=== PATIENT | female | born 1960 | race Caucasian/White ===

== ENCOUNTER → 2016-05-10 | Outpatient (CLI) | payer BC, OTHER ==
[~2016-05-10] MED LIST: ALBUAER2 INH; ATOR-26 PO; EFF75 PO; EFFSR75 PO; HYDR25CA PO; LATA0.5S OP; LISI-729 PO; MELATAB2 PO; MIRT30TA2 PO; OXYC-57 PO; OXYC-643 PO; RANI300T2 PO; RIZA10TA18 PO; SIMV40TA2 PO; VENL150C56 PO
--- NOTE | 2016-05-10 15:58 | MAMMOGRAPHY REPORT ---
BILATERAL DIGITAL SCREENING MAMMOGRAM TOMOSYNTHESIS WITH CAD: 05/10/2016 CLINICAL HISTORY: Routine screening. Patient has no complaints. TECHNIQUE: Breast tomosynthesis in addition to standard 2D mammography was performed. Current study was also evaluated with a Computer Aided Detection (CAD) system. COMPARISON: Comparison is made to exams dated: 05/05/2013 mammogram, 04/18/2012 mammogram, 05/13/2013 ma mmogram, 05/06/2012 mammogram, 11/22/2010 mammogram, and 11/18/2009 mammogram - [facility]. BREAST COMPOSITION: The tissue of both breasts is heterogeneously dense, which may obscure small ma sses. FINDINGS: There is focal architectural distortion and associated clustered microcalcification in th e upper outer middle one third of the right breast, for which additional spot compression tomosynthe sis HD views, spot magnification views and possibly ultrasound are recommended. There are possible grouped microcalcifications in the medial, middle one third of the left breast, best seen on the CC view, for which additional spot magnification views are also recommended in the left breast. No other suspicious mass, architectural distortion or cluster of microcalcifications is seen bilater ally. IMPRESSION: ACR BI-RADS CATEGORY 0: INCOMPLETE EVALUATION: NEED ADDITIONAL IMAGING EVALUATION The focal architectural distortion and associated clustered microcalcification in the right upper ou ter quadrant, and left breast possible grouped microcalcifications need additional imaging evaluatio n. The patient will be called to schedule an appointment. Approximately 10% of breast cancers are not detected with mammography. A negative mammographic repor t should not delay biopsy if a clinically suggestive mass is present. Pema Zaman M.D. ay/:05/10/2016 15:16:13 Facility Supervisor: Juany MCMILLAN,R, M, [facility] letter sent: Addl Imaging 0 BI-RADS Code: ACR BI-RADS Category 0: Incomplete Evaluation: Need Additional Imaging Evaluation
== END | disposition home or self-care (01) ==
LOC: C.MAMM 14:25
PROVIDERS: ATTEND Family Medicine
DX: Z12.31 Encounter for screening mammogram for malignant neoplasm of breast (principal); N64.9 Disorder of breast, unspecified; R92.0 Mammographic microcalcification found on diagnostic imaging of breast

== ENCOUNTER → 2016-05-15 | Outpatient (CLI) | payer BC, OTHER ==
[~2016-05-15] MED LIST changes: -EFFSR75 PO; -SIMV40TA2 PO
[2016-05-15 18:13] LABS: URINE APPEARANCE TURBID (CLEAR); URINE BILIRUBIN NEG (NEG); URINE COLOR YELLOW; URINE EPITHELIAL CELL AUTO >30 /lpf (0-5); URINE NITRITE NEG (NEG); URINE SPECIFIC GRAVITY 1.025 (1.000-1.030); UROBILINOGEN NEG (NEG)
[2016-05-15 18:15] LABS: MANUAL MICROSCOPIC REQUIRED? NO; REVIEW REQ? YES
== END | disposition home or self-care (01) ==
LOC: C.LABSPEC 17:38
PROVIDERS: ATTEND Obstetrics & Gynecology
DX: N81.11 Cystocele, midline (principal)

== ENCOUNTER → 2016-05-19 | Outpatient (CLI) | payer BC, OTHER ==
--- NOTE | 2016-05-19 13:30 | MAMMOGRAPHY REPORT ---
BILATERAL DIGITAL DIAGNOSTIC MAMMOGRAM TOMOSYNTHESIS AND TARGETED RIGHT ULTRASOUND: 05/19/2016 CLINICAL HISTORY: Callback from screening mammogram for right breast architectural distortion and ca lcifications and left breast calcifications. TECHNIQUE: Breast tomosynthesis in addition to standard 2D mammography was performed. Spot peter robin right CC and MLO tomosynthesis images and spot magnification bilateral cc and ML views were obt ained. COMPARISON: Comparison is made to exams dated: 05/10/2016 mammogram, 05/13/2013 ultrasound, 05/13/2013 ma mmogram, 05/05/2013 mammogram, 05/06/2012 mammogram, and 11/22/2010 mammogram - [facility]. BREAST COMPOSITION: The tissue of both breasts is heterogeneously dense, which may obscure small ma sses. FINDINGS: Spot compression views demonstrate persistent architectural distortion within the right upper outer quadrant. Pleomorphic calcifications are seen in association with the mass, with the extent of calc ifications measuring approximately 19 mm. Spot magnification views of the left breast demonstrate a small 5 mm cluster of amorphic calcificati ons in the left upper inner quadrant, best seen on the cc view. The calcifications are indeterminat e and stereotactic biopsy is recommended for further evaluation. A few other scattered punctate eliezer ign-appearing calcifications are seen within the left medial breast. Targeted ultrasound was performed of the area of the architectural distortion and calcifications. I n the right breast at 9:00 (note that the images are mislabeled as 3:00) periareolar region, there i s an ill-defined hypoechoic irregular mass which measures 8 x 11 x 9 mm. This likely correlates wit h the mammographic findings and is suspicious for malignancy. Recommend ultrasound guided core need le biopsy versus stereotactic biopsy for further evaluation. IMPRESSION: ACR BI-RADS CATEGORY 4C: MODERATE SUSPICION FOR MALIGNANCY, TARGETED ULTRASOUND ACR BI- RADS CATEGORY 4C: MODERATE SUSPICION FOR MALIGNANCY 1. Architectural distortion and associated pleomorphic calcifications in the right upper outer quad rant mammographically, with a corresponding hypoechoic 11 mm mass seen on ultrasound in the right 9: 00 breast. Findings are suspicious for malignancy and stereotactic biopsy versus ultrasound-guided core needle biopsy is recommended for further evaluation. 2. Small cluster of calcifications in the left upper inner quadrant is indeterminate. Recommend st ereotactic biopsy for further evaluation. A phone call was made to the physician's office to confirm faxed results were received. The patient has been verbally notified of the results. She tentatively scheduled the biopsies before leaving t he department. Approximately 10% of breast cancers are not detected with mammography. A negative mammographic repor t should not delay biopsy if a clinically suggestive mass is present. Sarah Fang M.D. ah/:05/19/2016 12:13:35 Business Developer: Alisson NORWOOD)(Hero), [facility] letter sent: Abnormal 4/5 BI-RADS Code: ACR BI-RADS Category 4C: Moderate Suspicion For Malignancy Ultrasound BI-RADS: ACR BI -RADS Category 4C: Moderate Suspicion For Malignancy
== END | disposition home or self-care (01) ==
LOC: C.MAMM 10:00
PROVIDERS: ATTEND Family Medicine
DX: R92.1 Mammographic calcification found on diagnostic imaging of breast (principal); N63 Unspecified lump in breast; N64.89 Other specified disorders of breast

== ENCOUNTER → 2016-05-31 | Outpatient (CLI) | payer BC, OTHER ==
--- NOTE | 2016-05-31 09:24 | Discharge Instructions ---
Discharge Instructions Procedure Procedure Date: May 31, 2016. Reason for visit: Bilateral Calcs/Lt Stereo/Rt Poss St Vs Core. Discharge Discharge Date: May 31, 2016. Discharge Diagnosis: status post breast biopsies Instructions Activity Recommendations: Additional Limitations (see below) Return to School/Work: no limitations Recommended Home Diet: No Limitations Provider Instructions: ACTIVITY RECOMMENDATIONS: * No lifting, pushing, pulling or exercising the affected side for three days. RETURN TO SCHOOL/WORK: * You may return to work/school after the procedure, but do not perform any strenuous activities for 24 to 48 hours. MEDICATIONS: * Tylenol (two 325 mg) every four to six hours if needed for mild pain (if not allergic to Tylenol). DIET: * Resume previous diet. SPECIAL CARE INSTRUCTIONS: * Keep biopsy site dry for 24 hours. May shower after 24 hours, but do not soak (bathe) incision. * May remove Tegaderm (plastic patch) tomorrow AFTER showering. * Leave the steri-strips on for one week. Allow the steri-strips to fall off by themselves. If not off after one week, you may remove them. You may place a Bandaid crosswise over the strips, if desired. * Apply ice 10 minutes on and 10 minutes off as needed. * Wear a bra at bedtime to sleep more comfortably for 2-3 days. * Your referring physician should have the results after approximately 5 to 7 business days. * Call for unusual bleeding, fever, drainage, etc or if you have any questions call during normal business hours or after hours call Dr Fang, [phone]. FOLLOW UP VISIT: Follow-up with Referring Physician as scheduled. Allergies Coded Allergies: Penicillins (Verified Allergy, Unknown, HIVES RASH FACIAL SWELLING, 05/11/16 ) Maria Isabel Chung Recommendations: Call your doctor if: * Temperature above 101 degrees * Pain not relieved by pain medicine ordered * There is increased drainage or redness from any incision * You have any unanswered questions or concerns. Your Doctors Instructions noted above were prepared by provider Sarah Fang. Patient Signature Section: Patient Instructions Signature Page Pattie Madison Patient (or Guardian) Signature/Date: I have read and understand the instructions given to me by my caregivers. Caregiver/RN/Doctor Signature/Date: The above-named patient and/or guardian has received patient instructions on this date. + Original Patient Signature Page (only) stays with chart. Please make copy for patient.
--- NOTE | 2016-05-31 12:31 | MAMMOGRAPHY REPORT ---
STEREOTACTIC GUIDED BIOPSY LEFT BREAST: 05/31/2016 CLINICAL HISTORY: Indeterminate calcifications in the left upper inner quadrant. PATIENT CONSENT: The procedure, risks, benefits, and alternatives of stereotactic biopsy with clip maribel jones were discussed with the patient, and verbal and written consent was obtained. A timeout wa s performed immediately prior to the procedure. PROCEDURE DESCRIPTION: With stereotactic guidance, aseptic technique, and lidocaine as a local anest hetic (1% lidocaine to anesthetize the skin and 1% lidocaine with epinephrine to anesthetize the elly per tissues), the area of concern in the left upper inner quadrant was sampled multiple times with a 9-gauge vacuum-assisted biopsy needle ([employer]). The path of approach was craniocaudal the spe cimen radiograph demonstrates calcifications to be present in the samples. The samples containing c alcifications (labeled "A") were from the samples without calcifications (labeled "B"). A metallic marker clip was placed at the biopsy site. This was confirmed on postprocedure mammograms . Direct pressure was applied at the biopsy site and hemostasis was readily achieved. The patient tolerated the procedure without complication. She was given wound care instructions. COMPARISON: Comparison is made to exams dated: 05/19/2016 ultrasound, 05/19/2016 mammogram, 05/10/2016 mammogram, and 05/05/2013 mammogram - [facility]. IMPRESSION: STEREOTACTIC GUIDED BIOPSY Stereotactic biopsy of indeterminate calcifications in the left upper inner quadrant, with clip lon landers. The patient will receive pathology results from her referring provider. Sarah Fang M.D. ah/:05/31/2016 09:51:38 Dividend Deposit Voucher Clerk: Kavita NORWOOD)(M), [facility]
--- NOTE | 2016-05-31 12:31 | MAMMOGRAPHY REPORT ---
THIS REPORT HAS BEEN AMENDED. STEREOTACTIC GUIDED BIOPSY RIGHT BREAST: 05/31/2016 CLINICAL HISTORY: Indeterminate calcifications with associated architectural distortion in the right upper outer quadrant. PATIENT CONSENT: The procedure, risks, benefits, and alternatives of stereotactic biopsy with clip p lacement were discussed with the patient, and verbal and written consent was obtained. A timeout wa s performed immediately prior to the procedure. PROCEDURE DESCRIPTION: With stereotactic guidance, aseptic technique, and lidocaine as a local anest hetic (1% lidocaine to anesthetize the skin and 1% lidocaine with epinephrine to anesthetize the elly per tissues), the area of concern in the right upper outer quadrant was sampled multiple times with a 9-gauge vacuum-assisted biopsy needle ([employer]). The path of approach was craniocaudal. The specimen radiograph demonstrates calcifications to be present in the samples. A metallic marker cli p was placed at the biopsy site. This was confirmed on postprocedure mammograms. Direct pressure w as applied at the biopsy site and hemostasis was readily achieved. The patient tolerated the proced ure without complication. She was given wound care instructions. COMPARISON: Comparison is made to exams dated: 05/31/2016 stereotactic biopsy, 05/19/2016 mammogram, 05/10/2016 mammogram, and 05/13/2013 mammogram - [facility]. IMPRESSION: STEREOTACTIC GUIDED BIOPSY Stereotactic biopsy of indeterminate calcifications in the right upper outer quadrant, with clip riya cement. The patient will receive pathology results from her referring provider. Sarah Fang M.D. ah/:05/31/2016 09:52:44 Clinical Orthoptist: Kavita Liu RT(R)(M), [facility] AMENDMENT: 06/14/2016 Sarah Fang M.D. The pathology from bilateral stereotactic biopsies were reviewed on 06/14/2016. The pathology of the right breast stereotactic biopsy yielded usual ductal hyperplasia, fibrocystic changes, and microcal cifications associated with benign ductal elements. The left breast stereotactic biopsy yielded eliezer ign breast tissue, fibrocystic changes, and micro-calcifications associated with benign ductal eleme nts. Given the presence of multiple calcifications within both specimens, both areas were felt to h ave been adequately sampled. Recommend bilateral diagnostic mammograms in 6 months to confirm stabi lity.
--- NOTE | 2016-05-31 12:33 | MAMMOGRAPHY REPORT ---
BILATERAL DIGITAL DIAGNOSTIC MAMMOGRAM: 05/31/2016 CLINICAL HISTORY: Status post bilateral stereotactic biopsy. TECHNIQUE: Postprocedural bilateral CC and ML views were obtained. COMPARISON: Comparison is made to exams dated: 05/19/2016 ultrasound, 05/19/2016 mammogram, 05/10/2016 mammogram, 05/13/2013 mammogram, 05/06/2012 mammogram, and 05/05/2013 mammogram - [facility]. BREAST COMPOSITION: The tissue of both breasts is heterogeneously dense, which may obscure small ma sses. FINDINGS: A new biopsy marker clip is seen within the right breast status post stereotactic biopsy of right upper outer quadrant calcifications and associated architectural distortion. There is infe rior migration of the biopsy marker clip of approximately 2.2 cm, likely due to accordion effect. A new biopsy marker clip is seen within the left upper inner quadrant at the site of the biopsied antonio cifications. No significant postbiopsy hematoma is seen. IMPRESSION: POST PROCEDURE IMAGING FOR MARKER PLACEMENT New biopsy marker clips status post bilateral stereotactic biopsy. There is inferior migration of t he right biopsy marker clip as described above. Pathology results are pending. Approximately 10% of breast cancers are not detected with mammography. A negative mammographic repor t should not delay biopsy if a clinically suggestive mass is present. Sarah Fang M.D. /:05/31/2016 10:32:30 Physician Allergist Immunologist: Kavita MCMILLAN(Micheal)(M), [facility] BI-RADS Code: Post Procedure Imaging For Marker Placement
== END | disposition home or self-care (01) ==
LOC: C.MAMM 08:22
PROVIDERS: ATTEND Family Medicine
DX: R92.0 Mammographic microcalcification found on diagnostic imaging of breast (principal); R92.1 Mammographic calcification found on diagnostic imaging of breast

== ENCOUNTER 2016-06-06 11:07 | Day surgery (SDC) | payer BC, OTHER ==
[2016-05-11 13:41] VITALS: BMI 31.0
[2016-05-11 13:54] VITALS: BMI 31.0
--- NOTE | 2016-05-11 14:11 | PAT Medication Instructions ---
Service Date May 11, 2016. Current Home Medication List Albuterol (Ventolin), 2 PUFFS INH QID Atorvastatin (Lipitor), 80 MG PO HS Hydroxyzine Pamoate (Vistaril), 1 CAP PO Q6H Latanoprost (Xalatan 0.005% Oph Alexa), 1 DROPS OP HS Lisinopril (Zestril), 5 MG PO QAM Melatonin (Melatonin Maximum Strengt), 1 TAB PO HS Mirtazapine Soltab (Remeron Soltab), 30 MG PO HS Oxycodone/Acetaminophen 5MG/325MG (Oxycodone/Acetaminophen 5MG/325MG), 1 TABLET PO Q6H Ranitidine (Zantac), 300 MG PO HS Rizatriptan Benzoate (Maxalt), 10 MG PO PRN Venlafaxine Hcl (Effexor Extended Rel), 150 MG PO Q2D Venlafaxine Hcl (Effexor), 75 MG PO Q2D Medication Instructions For Your Scheduled Surgery - Hold the following medications the morning of surgery: Lisinopril (Zestril), 5 MG PO QAM - Take the following medications the morning of surgery with a sip of water: Venlafaxine Hcl (Effexor Extended Rel), 150 MG PO Q2D Venlafaxine Hcl (Effexor), 75 MG PO Q2D Rizatriptan Benzoate (Maxalt), 10 MG PO PRN Hydroxyzine Pamoate (Vistaril), 1 CAP PO Q6H Albuterol (Ventolin), 2 PUFFS INH QID (bring with you to hospital morning of surgery) Oxycodone/Acetaminophen 5MG/325MG (Oxycodone/Acetaminophen 5MG/325MG), 1 TABLET PO Q6H (okay to take up to 4 hours prior to surgery if needed) - Hold the following medications as scheduled the night before surgery: Mirtazapine Soltab (Remeron Soltab), 30 MG PO HS - Take the following medications as scheduled the night before surgery: Rizatriptan Benzoate (Maxalt), 10 MG PO PRN Ranitidine (Zantac), 300 MG PO HS Melatonin (Melatonin Maximum Strengt), 1 TAB PO HS Latanoprost (Xalatan 0.005% Oph Alexa), 1 DROPS OP HS Hydroxyzine Pamoate (Vistaril), 1 CAP PO Q6H Albuterol (Ventolin), 2 PUFFS INH QID Atorvastatin (Lipitor), 80 MG PO HS Oxycodone/Acetaminophen 5MG/325MG (Oxycodone/Acetaminophen 5MG/325MG), 1 TABLET PO Q6H If you have any questions please call us at [phone] (Shelby Feng PA-C) or [phone] or [phone]
--- NOTE | 2016-05-11 14:36 | DIAGNOSTIC IMAGING REPORT ---
CHEST PREADMISSION(PA/LAT) CLINICAL HISTORY: PAT preoperative evaluation COMPARISON STUDY: No previous studies for comparison. FINDINGS: The bones soft tissues and hemidiaphragms are normal. The cardiomediastinal silhouette is normal. The lungs are clear. The pulmonary vasculature is normal. IMPRESSION: Negative chest. Electronically signed by: Kiran Haque M.D. 05/11/2016 2:35 PM Dictated Date/Time: 05/11/2016 2:35 PM
[2016-05-11 14:45] LABS: BASO % 0.4 %; BASO ABS # 0.04 K/uL (0-0.2); COMPLETE YES; EOS % 2.3 %; HEMATOCRIT 37.8 % (37-47); IG% 0.1 %; LYMPH ABS # 3.63 K/uL (1.2-3.4); MEAN CORPUSCULAR HEMOGLOBIN 30.5 pg (25-34); MEAN CORPUSCULAR HGB CONC 33.9 g/dl (32-36); MEAN PLATELET VOLUME 9.6 fL (7.4-10.4); MONO % 6.9 %; NEUT % 50.3 %; PLATELET COUNT 256 K/uL (130-400); WHITE BLOOD COUNT 9.07 K/uL (4.8-10.8)
[2016-05-11 14:56] LABS: INR 0.9 (0.9-1.1)
[2016-05-11 15:02] LABS: URINE APPEARANCE CLEAR (CLEAR); URINE BILIRUBIN NEG (NEG); URINE COLOR YELLOW; URINE EPITHELIAL CELL AUTO >30 /lpf (0-5); URINE NITRITE NEG (NEG); URINE SPECIFIC GRAVITY 1.022 (1.000-1.030); UROBILINOGEN NEG (NEG)
[2016-05-11 15:03] LABS: MANUAL MICROSCOPIC REQUIRED? NO; REVIEW REQ? NO
[2016-05-11 15:07] LABS: BUN/CREATININE RATIO 15.2 (10-20); CALCIUM 9.1 mg/dl (8.5-10.1); CREATININE 1.1 mg/dl (0.60-1.20); POTASSIUM 3.5 mmol/L (3.5-5.1)
[~2016-06-06] VITALS: Ht 162.6 cm; Wt 82.6 kg
[~2016-06-06 11:07] MED LIST changes: +CLINDAMYCIN 600 MG/54 ML D5W 54 ML IV SCH; +LACTATED RINGER'S 1000ML 1,000 ML IV SCH; -OXYC-57 PO
[2016-06-06 11:32] VITALS: BMI 31.0
[2016-06-06 11:41] VITALS: BP 99/67; PULSE 93; TEMP 36.9; O2SAT 94; Ht 162.6 cm; Wt 82.6 kg
[2016-06-06] MEDS ORDERED: FENTANYL CITRATE INJ 50 MCG/1 ML 2 ML VIAL ONE ×2 (12:01→13:07)
[2016-06-06] MEDS ORDERED: MIDAZOLAM HCL 1 MG/ML 2ML VIAL ONE (12:01)
--- NOTE | 2016-06-06 12:17 | History and Physical ---
History & Physical Date Jun 06, 2016. Chief Complaint LBP and bilateral leg pain History of Present Illness The patient is a 56 year old female with complaints of above who has been symptomatic for months. Her history is significant for a prior R L5-S1 microdiscectomy following which she did well. She is limited in her ability to work due to the pain. Pain radiates to hip hips and is worse with standing. MRI shows L4-5 stenosis and multilevel degenerative changes. no incontinence or myelopathic symptoms. She failed outpatient management and was utilizing pain meds. Past Medical/Surgical History high cholesterol anxiety obesity smoker lumbar surgery asthma Additional History Hepatic Disease: No Endocrine Disorder: No Kidney Disease: No Hypertension: No Heart Disease: No Bleeding Tendencies: No Infectious Diseases: No Allergies Coded Allergies: Penicillins (Verified Allergy, Unknown, HIVES RASH FACIAL SWELLING, ) Home Medications Scheduled Albuterol (Ventolin), 2 PUFFS INH QID Atorvastatin (Lipitor), 80 MG PO HS Hydroxyzine Pamoate (Vistaril), 1 CAP PO Q6H Latanoprost (Xalatan 0.005% Oph Alexa), 1 DROPS OP HS Lisinopril (Zestril), 5 MG PO QAM Melatonin (Melatonin Maximum Strengt), 1 TAB PO HS Mirtazapine Soltab (Remeron Soltab), 30 MG PO HS Oxycodone/Acetaminophen 5MG/325MG (Oxycodone/Acetaminophen 5MG/325MG), 1 TABLET PO Q6H Ranitidine (Zantac), 300 MG PO HS Rizatriptan Benzoate (Maxalt), 10 MG PO PRN Venlafaxine Hcl (Effexor Extended Rel), 150 MG PO Q2D Venlafaxine Hcl (Effexor), 75 MG PO Q2D Physical Examination Skin: warm/dry Eyes: normal inspection, sclerae normal ENT: normal ENT inspection Head: normocephalic, atraumatic Neck: supple, trachea midline Respiratory/Chest: lungs clear, no respiratory distress Cardiovascular: regular rate, rhythm Back: normal inspection (midline scar) Extremities: normal inspection, normal range of motion Neurologic/Psych: no motor/sensory deficits, alert, normal reflexes, oriented x 3 Diagnosis L4-5 stenosis Plan of Treatment L4-5 decompression
[2016-06-06] MEDS ORDERED: BUPIVACAINE/EPINEPHRINE 0.5% MPF 1:200,000 30 ML VIAL ONE (12:33)
[2016-06-06] MEDS ORDERED: THROMBIN FOR SOLN 20000 UNIT KIT ONE (12:33)
[2016-06-06] MEDS ORDERED: THROMBIN 5000 UNITS KIT ONE (12:33)
[2016-06-06] MEDS ORDERED: BACITRACIN 50000 UNIT VIAL ONE (12:34)
[2016-06-06] MEDS ORDERED: HEPARIN SOD (PORCINE) 1000 UNIT/ML 10 ML VIAL ONE (12:34)
[2016-06-06] MEDS ORDERED: ATROPINE SULFATE 0.1 MG/ML 5ML SYR IV PRN (13:00)
[2016-06-06] MEDS ORDERED: FENTANYL CITRATE INJ 50 MCG/1 ML 2 ML VIAL IV PRN (13:00)
[2016-06-06] MEDS ORDERED: ONDANSETRON INJ 2 MG/ML 2 ML VIAL IV PRN ×2 (13:00→13:45)
[2016-06-06] MEDS ORDERED: EpHEDrine SULFATE INJ 50 MG/ML AMP IV PRN (13:00)
[2016-06-06] MEDS ORDERED: HYDROmorphone INJ 2 MG/ML SYR/VIAL ONE ×2 (13:07→13:38)
[2016-06-06] MEDS ORDERED: FLOSEAL HEMOSTATIC MATRIX 5ML TOP ONE (13:31)
[2016-06-06] MEDS ORDERED: DEXAMETHASONE SOD INJ 4 MG/ML VIAL ONE (13:38)
[2016-06-06] MEDS ORDERED: ROCURONIUM BROMIDE 10 MG/ML 5 ML VIAL ONE (13:38)
[2016-06-06] MEDS ORDERED: LIDOCAINE HCL 2% 2 ML VIAL (20MG/ML) ONE (13:38)
[2016-06-06] MEDS ORDERED: ONDANSETRON INJ 2 MG/ML 2 ML VIAL ONE ×2 (13:38→14:06)
[2016-06-06] MEDS ORDERED: PROPOFOL IV EMULSION 10 MG/ML 20 ML VIAL IV ONE (13:38)
--- NOTE | 2016-06-06 13:42 | [facility] Post Operative Brief Note ---
Immediate Operative Summary Operative Date Jun 06, 2016. Pre-Operative Diagnosis L4-5 Stenosis Post-Operative Diagnosis Same as pre-operative diagnosis Procedure(s) Performed L4-L5 Decompression Surgeon Dr. Mark Strong Management Manager Surgeon(s) Renato Gutierres PA-C Estimated Blood Loss 5ml Findings dict Specimens None per surgeon
[2016-06-06] MEDS ORDERED: OXYC-57 PO (13:44)
[2016-06-06] MEDS ORDERED: OXYCODONE/ACETAMINOPHEN 5-325 TAB PO PRN ×2 (13:45)
[2016-06-06] MEDS ORDERED: MoRPHine SULFATE 2 MG/ML CARP IV PRN (13:45)
--- NOTE | 2016-06-06 13:45 | Discharge Instructions ---
Discharge Instructions Date of Service Jun 06, 2016. Admission Reason for Admission: Herniated Nucleus Pulposus Discharge Discharge Diagnosis / Problem: same Discharge Goals Goal(s): Decrease discomfort Activity Recommendations Activity Limitations: per Instructions/Follow-up section Shower/Bathe: may shower/bathe in 3 days . Instructions / Follow-Up Instructions / Follow-Up ACTIVITY RECOMMENDATIONS: SELF CARE INSTRUCTIONS AFTER A LAMINECTOMY 1. No prolonged sitting (less than 30 minutes for the first 3 weeks after surgery). 2. No bending, lifting more than 5 pounds, or twisting (roll like a log when turning in bed). 3. You may shower 3 days after surgery if no drainage from wound. Thoroughly dry wound. Do not soak in the tub. 4. Please walk as much as you can for exercise. Gradually increase the distance that you walk as your endurance increases. 5. You may drive in 7-10 days if you are comfortable and no longer requiring pain medications. SPECIAL CARE INSTRUCTIONS: VERY IMPORTANT TO READ AND REVIEW A. Your surgical incision has been closed with a cosmetic suture under the skin that will dissolve in about 6 weeks. In 14 days, you can use a pair of clean scissors and cut the suture that is left outside of the skin at the ends of your incision. B. Complications are uncommon, but please contact us if you have any signs or symptoms of: 1. wound infection (fever higher than 102.5 degrees F, redness, separation of wound, drainage, or increasing pain from the incision) 2. blood clots in legs (pain, swelling, redness and warmth in legs) 3. urinary tract infection (fever higher than 102.5 degrees, burning upon urination or increased frequency of urination) 4. nerve problems (inability to walk on your toes or heels, numbness, loss of bowel or bladder control) 5. any other symptoms that concern you. C. Please call the office at if you have any concerns or questions about your operation or recovery. MANAGING PAIN AFTER SPINAL SURGERY 1. Narcotic medication is intended for short-term use and will be provided for surgical pain. Surgical pain usually lasts for a period of 4-6 weeks. Narcotic medication includes Percocet, Vicodin, Darvocet, Tylenol #3 or Lortab. 2. Longer-term pain is more appropriately treated with non-narcotic medication such as Tylenol ES. 3. Muscle spasm is not appropriately treated with narcotics. Muscle relaxers such as Soma, Flexeril or Skelaxin can be used along with Tylenol ES. 4. Remember that we all live with some "aches and pains". This is not unusual or uncommon after an injury or as we get older. 5. We will provide appropriate medication within the normal guidelines of their prescribed use. We will also be very cautious and aware of potential abuse and extended duration of patients' medication needs. 6. Please allow 2-3 days to process refills. Prescriptions will not be mailed but must be picked up at the office. FOLLOW UP VISIT: Keep your scheduled follow-up appointment. Any questions, please call the office at . Current Hospital Diet Patient's current hospital diet: Discharge Diet Recommended Diet: Regular Diet Procedures Procedures Performed: L4-L5 Decompression Pending Studies Studies pending at discharge: no Medical Emergencies . Who to Call and When: Medical Emergencies: If at any time you feel your situation is an emergency, please call 911 immediately. . Non-Emergent Contact Non-Emergency issues call your: Surgeon . "Provider Documentation" section prepared by Mark Strong. VTE Core Measure Inpt VTE Proph given/why not?: SCD's [place] Drug Monitoring Program Search Results: patient reviewed within database, no issues identified
[2016-06-06] MEDS ORDERED: ESMOLOL HCL 10 MG/ML 10 ML VIAL ONE (14:06)
[2016-06-06] MEDS ORDERED: PHENYLEPHRINE 100MCG/ML 5ML SYR ONE (14:06)
[2016-06-06] MEDS ORDERED: KETOROLAC TROMETHAMINE 30 MG/ML VIAL ONE (14:06)
[2016-06-06] MEDS ORDERED: GLYCOPYRROLATE INJ 0.2 MG/ML VIAL ONE (14:06)
[2016-06-06] MEDS ORDERED: NEOSTIGMINE METHYLSULFATE 1 MG/ML 10ML VIAL ONE (14:06)
--- NOTE | 2016-06-06 14:13 | DIAGNOSTIC IMAGING REPORT ---
INTRAOPERATIVE LUMBAR SPINE SINGLE VIEW CLINICAL HISTORY: Intraoperative localization. L4-5 discectomy. COMPARISON STUDY: No previous studies for comparison. FINDINGS: 3 seconds of fluoroscopic time was utilized. A single intraoperative fluoroscopic spot image was acquired. This reveals a metallic probe at the level the posterior elements at the L4-5 level. IMPRESSION: Metallic probe at the L4-5 level. Electronically signed by: Hernesto Brooks M.D. 06/06/2016 2:12 PM Dictated Date/Time: 06/06/2016 2:11 PM
--- NOTE | 2016-06-06 14:30 | Anesthesiology Progress Note ---
Anesthesia Post Op Note Date & Time Jun 06, 2016 at 14:30 Vital Signs Pain Intensity: 2 Vital Signs Past 12 Hours Date Time Temp Pulse Resp B/P Pulse Ox O2 Delivery O2 Flow Rate FiO2 06/06/16 14:20 94 17 106/68 100 Room Air 06/06/16 14:10 97 14 97/68 100 Mask 10 06/06/16 14:00 96 17 106/57 100 Mask 10 06/06/16 13:54 36.0 99 17 106/61 100 Mask 10 06/06/16 11:41 36.9 93 18 99/67 94 Room Air Notes Mental Status: alert / awake / arousable, participated in evaluation Pt Amnestic to Procedure: Yes Nausea / Vomiting: adequately controlled Pain: adequately controlled Airway Patency, RR, SpO2: stable & adequate BP & HR: stable & adequate Hydration State: stable & adequate Anesthetic Complications: no major complications apparent
[2016-06-06] MEDS ORDERED: OXYCODONE/ACETAMINOPHEN 5-325 TAB ONE (15:22)
[2016-06-06] MEDS ORDERED: SODIUM CHLORIDE 0.9% 1000ML 1,000 ML IV SCH (15:30)
[2016-06-06 15:45] VITALS: BP 93/52; PULSE 92; TEMP 37.1; O2SAT 92
--- NOTE | 2016-06-06 17:32 | OPERATIVE REPORT ---
DATE OF OPERATION: 06/06/2016 PREOPERATIVE DIAGNOSIS: L4-5 spinal stenosis. POSTOPERATIVE DIAGNOSIS: Same. PROCEDURE: L4-5 decompression. SURGEON: Dr. Strong. MANAGER PRINTING: Renato Gutierres PA-C. Please note he participated in all portions of the procedure and was critical for performance of procedure, participated in positioning, prepping, draping, retraction and wound closure. ANESTHESIA: General endotracheal anesthesia. COMPLICATIONS: None. ESTIMATED BLOOD LOSS: Minimal. DESCRIPTION OF PROCEDURE: After identification of patient and operative level, she was brought to the OR where she underwent induction of general anesthesia. She was then positioned prone on [facility] OR table. All bony prominences were well padded. Care was taken to avoid pressure on the periorbital area. Lumbosacral area was sterilely prepped and draped in usual fashion. Antibiotics were administered. Time-out was performed. Level was confirmed and skin incision was localized with lateral fluoroscopy and a spinal needle. I made skin incision after infiltration with Marcaine with epinephrine over the spinous process of L4-5 and exposed the spinous processes out to the level of the facets. I placed a Gelpi retractor, confirmed level with fluoroscopy, and a marker at L4-5 and then did a midline decompression with removal of the inferior portion of the L4 spinous process of the L4 lamina and then takedown ligamentum flavum. I undercut the medial facets bilaterally removing hypertrophied facet capsules at L4-5 and then palpated the nerve roots were decompressed that past through lateral recess at L4-5 bilaterally. I then irrigated with bacitracin solution, applied FloSeal for hemostasis, reconfirmed level and closed in layered fashion. All sponge and needle counts were correct at the end of the case. I attest to the content of the Intraoperative Record and any orders documented therein. Any exceptio ns are noted below.
== END 2016-06-06 15:40 | disposition home or self-care (01) ==
LOC: C.ACU 11:07
PROVIDERS: ATTEND Orthopaedic Surgery Orthopaedic Surgery of the Spine
DX: M48.06 Spinal stenosis, lumbar region (principal); M19.90 Unspecified osteoarthritis, unspecified site; H40.9 Unspecified glaucoma; F32.9 Major depressive disorder, single episode, unspecified; F17.200 Nicotine dependence, unspecified, uncomplicated; E66.9 Obesity, unspecified; Z68.31 Body mass index [BMI] 31.0-31.9, adult; E11.9 Type 2 diabetes mellitus without complications; Z88.0 Allergy status to penicillin; Z98.890 Other specified postprocedural states

== ENCOUNTER → 2016-06-19 | Outpatient (CLI) | payer BC, OTHER ==
[~2016-06-19] MED LIST changes: -CLINDAMYCIN 600 MG/54 ML D5W 54 ML IV SCH; -LACTATED RINGER'S 1000ML 1,000 ML IV SCH; +OXYC-57 PO
--- NOTE | 2016-06-19 13:19 | DIAGNOSTIC IMAGING REPORT ---
LEFT LOWER EXTREMITY VENOUS DOPPLER CLINICAL HISTORY: Left leg pain. COMPARISON STUDY: No previous studies for comparison. TECHNIQUE: Sonography of the deep venous system of the left lower extremity was performed. Compression and augmentation were evaluated. FINDINGS: The left common femoral, superficial femoral and popliteal veins were compressible. Augmentation was normal. Flow was shown within the deep calf vessels. IMPRESSION: No evidence of deep venous thrombus within the left lower extremity. Electronically signed by: Chinedu Bone M.D. 06/19/2016 1:17 PM Dictated Date/Time: 06/19/2016 1:17 PM
== END | disposition home or self-care (01) ==
LOC: C.ULTRBC 12:50
PROVIDERS: ATTEND Physician Assistant
DX: M79.662 Pain in left lower leg (principal)

== ENCOUNTER → 2016-09-18 | Outpatient (CLI) | payer BC, OTHER | END | disposition home or self-care (01) | LOC: C.LABSPEC 16:51 | PROVIDERS: ATTEND Nurse Practitioner Adult Health | DX: N39.41 Urge incontinence (principal) ==

== ENCOUNTER → 2016-11-29 | Outpatient (CLI) | payer OTHER | END | disposition home or self-care (01) | LOC: C.LABSPEC 17:13 | PROVIDERS: ATTEND Nurse Practitioner Adult Health | DX: R31.29 Other microscopic hematuria (principal); R30.0 Dysuria ==

== ENCOUNTER → 2016-12-18 | Outpatient (CLI) | payer OTHER ==
[~2016-12-18] MED LIST changes: +OPTIRAY 320 IV PRN; -OXYC-57 PO
--- NOTE | 2016-12-18 17:15 | DIAGNOSTIC IMAGING REPORT ---
ABD/PELVIS COMBO CLINICAL HISTORY: 56 years-old Female presenting with R31.29 microhematuria, latex allergy, no iodine allergy, not di. TECHNIQUE: Multidetector CT of the abdomen and pelvis was performed before and after the administration of intravenous contrast. IV contrast: 121 mL of Optiray 320. A dose lowering technique was used consistent with the principles of ALARA (as low as reasonably achievable). COMPARISON: None. CT DOSE (mGy.cm): The estimated cumulative dose is 1699.10 mGycm. FINDINGS: [employer] topogram: Unremarkable. Lung bases: Minimal dependent changes likely atelectasis. Normal heart size. Coronary artery calcification. No pericardial or pleural effusion. Liver: Normal morphology. No liver lesion. Patent hepatic vasculature. Biliary: No intrahepatic or extrahepatic biliary ductal dilatation. Normal gallbladder. Pancreas: Mild parenchymal atrophy. Spleen: Normal. Adrenal glands: Nodular thickening of the left adrenal gland, nonspecific. Right adrenal gland normal. Kidneys and ureters: No nephrolithiasis. No hydronephrosis. No filling defect within the renal collecting systems. Ureters normal. Bladder: Allowing for underdistention of the bladder, the bladder wall is irregularly thickened most prominently along the anterior dome. Mild perivesicular inflammatory changes suggested. Pelvic organs: Uterus and ovaries normal. Bowel: Normal appendix. No bowel obstruction. Peritoneal cavity: No free fluid or intraperitoneal gas. Lymph nodes: No enlarged lymph nodes in the abdomen or pelvis. Vasculature: Atherosclerosis of the normal caliber abdominal aorta. IVC patent. Abdominal wall: Normal. Musculoskeletal: Degenerative changes of the spine. Bilateral pars defects noted. IMPRESSION: 1. Irregular bladder wall thickening predominantly involving the anterior dome. Correlate with urinalysis to exclude infectious cystitis. Given the irregularity of the thickening, urologic consultation for cystoscopy to be considered. No lymphadenopathy. 2. No nephrolithiasis or hydronephrosis. Normal ureters. Electronically signed by: Rios Lawson M.D. 12/18/2016 5:14 PM Dictated Date/Time: 12/18/2016 5:08 PM
== END | disposition home or self-care (01) ==
LOC: C.CTS 16:10
PROVIDERS: ATTEND Nurse Practitioner Adult Health
DX: R31.29 Other microscopic hematuria (principal); R93.41 Abnormal radiologic findings on diagnostic imaging of renal pelvis, ureter, or bladder

== ENCOUNTER → 2016-12-22 | Outpatient (CLI) | payer OTHER ==
[~2016-12-22] MED LIST changes: -OPTIRAY 320 IV PRN
== END | disposition home or self-care (01) ==
LOC: C.LAB 14:07
PROVIDERS: ATTEND Nurse Practitioner Adult Health
DX: N39.0 Urinary tract infection, site not specified (principal); N39.46 Mixed incontinence; R30.0 Dysuria; R31.29 Other microscopic hematuria

== ENCOUNTER → 2016-12-25 | Outpatient (CLI) | payer OTHER ==
--- NOTE | 2016-12-25 12:27 | DIAGNOSTIC IMAGING REPORT ---
BILATERAL LOWER EXTREMITY VENOUS DOPPLER HISTORY: Bilateral lower extremity pain. COMPARISON STUDY: None. FINDINGS: There is normal compressibility, flow, and augmentation within the bilateral lower extremity deep venous systems. IMPRESSION: No DVT within the right or left lower extremity. Electronically signed by: Slade Mathews M.D. 12/25/2016 12:25 PM Dictated Date/Time: 12/25/2016 12:25 PM
== END | disposition home or self-care (01) ==
LOC: C.ULTR 11:49
PROVIDERS: ATTEND Physician Assistant
DX: I73.9 Peripheral vascular disease, unspecified (principal)